=== PATIENT | female | born 2000 | race Caucasian/White ===

== ENCOUNTER → 2021-10-06 | Outpatient (CLI) | LOC: LABNPT 14:40 | PROVIDERS: ATTEND Family Medicine | DX: N39.0 Urinary tract infection, site not specified (principal) | CPT/HCPCS: 87088 ==

== ENCOUNTER → 2021-11-10 | Outpatient (CLI) | LOC: LABNPT 14:44 | PROVIDERS: ATTEND Family Medicine | DX: F32.9 Major depressive disorder, single episode, unspecified (principal); Z33.1 Pregnant state, incidental | CPT/HCPCS: 87491; 87591 ==

== ENCOUNTER → 2021-11-11 | Outpatient (CLI) | payer MEDICAID ==
[2021-11-11 17:08] LABS: BASOPHILS % (AUTO) 0 % (0-10); EOSINOPHILS % (AUTO) 0 % (0-10); HEMATOCRIT 33 % (35-52); HEMOGLOBIN 11.3 g/dL (11.5-16.0); LYMPHOCYTES # (AUTO) 2.2 10^3/uL (1.0-4.0); LYMPHOCYTES % (AUTO) 20 % (12-44); MEAN CORPUSCULAR HEMOGLOBIN 29 pg (25-34); MEAN CORPUSCULAR HGB CONC 35 g/dL (32-36); MEAN CORPUSCULAR VOLUME 83 fL (80-99); MEAN PLATELET VOLUME 10.9 fL (9.0-12.2); MONOCYTES # (AUTO) 0.6 10^3/uL (0.0-1.0); MONOCYTES % (AUTO) 6 % (0-12); NEUTROPHILS # (AUTO) 7.9 10^3/uL (1.8-7.8); NEUTROPHILS % (AUTO) 73 % (42-75); PLATELET COUNT 267 10^3/uL (130-400); WHITE BLOOD COUNT 10.9 10^3/uL (4.3-11.0)
== END ==
LOC: LAB 16:40
PROVIDERS: ATTEND Family Medicine
DX: Z33.1 Pregnant state, incidental (principal); F32.9 Major depressive disorder, single episode, unspecified
CPT/HCPCS: 36415; 82306; 85025; 86376; 86800

== ENCOUNTER → 2022-01-19 | Outpatient (CLI) | payer MEDICAID ==
--- NOTE | 2022-01-19 11:46 | Diagnostic Imaging Report ---
INDICATION: survey. TECHNIQUE: Multiple real-time grayscale images were obtained over the gravid uterus. COMPARISON: None FINDINGS: There is a single live fetus in cephalic presentation. heart motion was noted, and a rate of 140 BPM was recorded. There are no abnormalities identified. The placenta is anterior, and there is no previa. The amniotic fluid volume is within normal limits. The growth parameters are fairly uniform. The cervix was identified and measures 4 cm in length. IMPRESSION: 1. There is a single live fetus of approximately 22 weeks 6 day gestation, +/- 2 weeks. The EDC is 05/19/2022. 2. There were no abnormalities identified. 3. The growth parameters are fairly uniform. Biometrical measurements are as follows: Biparietal 5.55 cm, age 23 weeks 0 days. Head circumference 21.01 cm, age 23 weeks 1 days. Abdominal circumference 17.67 cm, age 22 weeks 4 days. Femur length 3.81 cm, age 22 weeks 2 days. Sonographic estimate age: 22 weeks 6 days. Sonographic estimated date of delivery: 05/19/2022. Estimated Weight: 508 gm (+/- 75 gm). LMP percentile: 46%. heart rate: 140 beats per minute. number: 1 of 1. Dictated by: Dictated on workstation # [id number]
== END ==
LOC: RAD FS 08:44
PROVIDERS: ATTEND Family Medicine
DX: Z34.81 Encounter for supervision of other normal pregnancy, first trimester (principal); Z36.9 Encounter for antenatal screening, unspecified; Z3A.22 22 weeks gestation of pregnancy
CPT/HCPCS: 76805

== ENCOUNTER → 2022-02-28 | Outpatient (CLI) | payer MEDICAID ==
[2022-02-28 13:23] LABS: HEMATOCRIT 27 % (35-52); HEMOGLOBIN 9.4 g/dL (11.5-16.0); MEAN CORPUSCULAR HEMOGLOBIN 30 pg (25-34); MEAN CORPUSCULAR HGB CONC 35 g/dL (32-36); MEAN CORPUSCULAR VOLUME 86 fL (80-99); MEAN PLATELET VOLUME 10.9 fL (9.0-12.2); PLATELET COUNT 236 10^3/uL (130-400); WHITE BLOOD COUNT 14.8 10^3/uL (4.3-11.0)
== END ==
LOC: LAB FS 12:48
PROVIDERS: ATTEND Family Medicine
DX: Z34.03 Encounter for supervision of normal first pregnancy, third trimester (principal); Z3A.28 28 weeks gestation of pregnancy
CPT/HCPCS: 36415; 82950; 85027; 86780; 86850

== ENCOUNTER → 2022-03-28 | Outpatient (CLI) | payer MEDICAID | LOC: LABNPT 14:48 | PROVIDERS: ATTEND Family Medicine | DX: O99.612 Diseases of the digestive system complicating pregnancy, second trimester (principal); O23.42 Unspecified infection of urinary tract in pregnancy, second trimester; Z3A.32 32 weeks gestation of pregnancy | CPT/HCPCS: 87077; 87088; 87186 ==